=== PATIENT | male | born 1975 | race Caucasian/White ===

== ENCOUNTER 2025-11-15 07:30 | Outpatient (CLI) | payer OTHER, SELFPAY | END 2025-11-15 07:31 | disposition home or self-care (01) | LOC: NFLDREF 11-19 18:29 | PROVIDERS: PCP Family Medicine; Referring Provider Family Medicine; Visit Provider Family Medicine | DX: R53.83 Other fatigue (principal); R53.1 Weakness; Z13.0 Encounter for screening for diseases of the blood and blood-forming organs and certain disorders involving the immune mechanism; Z12.5 Encounter for screening for malignant neoplasm of prostate; Z13.6 Encounter for screening for cardiovascular disorders | CPT/HCPCS: 80048; 80061; 84403; G0103 ==